=== PATIENT | male | born 1935 | race Caucasian/White ===

== ENCOUNTER 2017-07-10 19:49 | Inpatient (IN) | payer OTHER ==
[~2017-07-10] VITALS: Ht 172.7 cm; Wt 67.0 kg
--- NOTE | ~2017-07-10 | EKG ---
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 07/11/17 0826 D: [id number] Alirio Paez MD, FACC /EPI
--- NOTE | ~2017-07-10 | 2DMMODE ---
[facility] [address] [place] [address] 2 D/M-MODE ECHOCARDIOGRAM Name: HAYES PERSON Room #: 243-P [facility] IN [facility]#: [id number] Admission: 07/10/17 Attend Phys: Kalen Benavidez MD Discharge: Date of : 33 Date of Service: 07/11/17 1016 Report #: [id number] THIS REPORT FOR: //name// APPROVED REPORT Study performed: 07/11/2017 08:09:46 EXAM: Comprehensive 2D, Doppler, and color-flow Echocardiogram Patient Location: ICU Room #: 243 Status: routine BSA: 1.81 HR: 100 bpm BP: 84/53 mmHg Other Information Study Quality: Adequate Indications STEMI, status post stent. Hx: HLD, HTN, PVD, COPD 2D Dimensions RVDd: 34.00 mm LVEF(%): 43.08 (>50%) IVSd: 8.52 (7-11mm) LVOT Diam: 20.12 (18-24mm) LVDd: 45.80 mm PWd: 10.49 (7-11mm) Ascending Ao: 32.29 (22-36mm) LVDs: 36.11 (25-40mm) Aortic Root: 28.27 mm Ordaz's LVEF: 43.08 % Volumes Left Atrial Volume (Systole) Single Plane 4CH: 46.31 mL Single Plane 2CH: 73.36 mL LA ESV Index: 35.00 mL/m2 Aortic Valve AoV Peak Sage.: 1.53 m/s AO Peak Gr.: 9.37 mmHg LVOT Max P.23 mmHg LVOT Max V: 0.90 m/s APOLINAR Vmax: 1.87 cm2 Mitral Valve MV Decel. Time: 91.87 ms MV E Max Sage.: 0.98 m/s IVRT: 50.75 ms [facility] [employer] [place] [address] 2 D/M-MODE ECHOCARDIOGRAM Name: PERSONHAYES Room #: 243-P [facility]#: [id number] Admission: 07/10/17 Attend Phys: Kalen Benavidez MD Discharge: Date of : 33 Date of Service: 07/11/17 1016 Report #: [id number] Pulmonary Valve PV Peak Sage.: 0.84 m/s PV Peak Gr.: 2.85 mmHg Tricuspid Valve TR Peak Sage.: 3.49 m/s RAP Estimate: 10.00 mmHg TR Peak Gr.: 48.70 mmHg PA Pressure: 59.00 mmHg Left Ventricle The left ventricle is normal size. There is normal left ventricular wall thickness. Left ventricular systolic function is decreased. LVEF is 35-40%. This study is not technically sufficient to allow evaluation of the LV diastolic function. Right Ventricle The right ventricle is normal size. Right ventricle is hypokinetic. Atria Left atrium is mildly dilated. The right atrium size is normal. Aortic Valve Aortic valve is calcified. Trace aortic regurgitation. There is no aortic valvular stenosis. Mitral Valve Mitral valve leaflets are thickened, and calcified. Mild mitral annular calcification. Moderate mitral regurgitation. No evidence of mitral valve stenosis. Tricuspid Valve The tricuspid valve is normal in structure. There is mild to moderate tricuspid regurgitation. The right atrial pressure is estimated at 10 mmHg. There is moderate pulmonary hypertension with an estimated PAP of 60mmHg. Pulmonic Valve Pulmonic valve is not well visualized. Great Vessels The aortic root is normal in size. The ascending aorta is normal in size. IVC is dilated and collapses <50% with inspiration. [address] [address] 2 D/M-MODE ECHOCARDIOGRAM Name: HAYES PERSON Room #: 243-P [facility] IN ..#: [id number] Admission: 07/10/17 Attend Phys: Kalen Benavidez MD Discharge: Date of : 33 Date of Service: 07/11/17 1016 Report #: [id number] Pericardium There is no pericardial effusion. <Conclusion> The left ventricle is normal size. Left ventricular systolic function is decreased. LVEF is 35-40%. Left atrium is mildly dilated. Aortic valve is calcified. Trace aortic regurgitation. Mitral valve leaflets are thickened, and calcified. Mild mitral annular calcification. Moderate mitral regurgitation. The tricuspid valve is normal in structure. There is mild to moderate tricuspid regurgitation. The right atrial pressure is estimated at 10 mmHg. There is moderate pulmonary hypertension with an estimated PAP of 60mmHg. Pulmonic valve is not well visualized. <ELECTRONICALLY SIGNED> By: Grayson Burciaga MD 07/11/17 1016 1016 1016 Grayson Burciaga MD /INF
--- NOTE | ~2017-07-10 | HC ---
[facility] [place] [address] CONSULTATION Name: HAYES PERSON Room #: 243-P [facility] IN .R.#: [id number] Admission: 07/10/17 Attend Phys: Kalen Benavidez MD Discharge: Date of : 33 Report #: [id number] THIS REPORT FOR: //name// CC: Sven Benavidez DATE OF SERVICE: 07/11/2017 REASON FOR CONSULTATION: Acute respiratory failure. IMPRESSION: 1. Acute respiratory failure. 2. Possible chronic obstructive pulmonary disease. 3. Cardiogenic shock. 4. Acute myocardial infarction, left main lesion post-stent. 5. Acute kidney injury. 6. Peripheral arterial disease. 7. History of prostate cancer. 8. History of subdural hematoma with yehuda hole. PLAN: We will assist with ventilator management, fluids per renal, as well as pressors. We will follow closely with you. HISTORY OF PRESENT ILLNESS: An 82-year-old with history of hypertension and diabetes, developed chest pain, presented to ____ with elevated troponin, emergency catheterization of left main, which was stented. The patient is unable to give history. PAST MEDICAL HISTORY: Per chart included diabetes, hypertension, peripheral arterial disease, COPD, and anemia. PAST SURGICAL HISTORY: Included yehuda hole, prostate CA with radiation seeds, and iliac stents. HOME MEDICATIONS: Included Levaquin, aspirin, Symbicort, Plavix, glipizide, lisinopril, and Synthroid. SOCIAL HISTORY: Positive tobacco. REVIEW OF SYSTEMS: Unobtainable. FAMILY HISTORY: Per chart included coronary artery disease. PHYSICAL EXAMINATION: VITAL SIGNS: Temperature 97.6, pulse 118, respiratory rate 28, and BP 91/49. [facility] [address] [place] [address] CONSULTATION Name: HAYES PERSON Room #: 243-P [facility] IN [facility].#: [id number] Admission: 07/10/17 Attend Phys: Kalen Benavidez MD Discharge: Date of : 33 Report #: [id number] GENERAL: The patient was seen this a.m. and this evening, currently on ventilator, minute ventilation 13, peak airway pressure 22. LUNGS: Coarse bilaterally. HEART: Regular. ABDOMEN: Bowel sounds present. EXTREMITIES: Bruising noted. Decreased pedal pulses. No edema. LABORATORY DATA: Tonight, pH 7.497, pCO2 31, pO2 135, 70%, rate is 16, tidal volume 500, and PEEP of 5. Hemoglobin down to 7.4. KUB showed fecal material. No small bowel obstruction. Echo showed EF 35% to 40% and moderate pulmonary hypertension at 60. We will follow closely with you. By: 010 Sven Mantilla MD /nt
--- NOTE | ~2017-07-10 | CATHLAB ---
[facility] [address] [place] [address] INVASIVE PROCEDURE REPORT Name: HAYES PERSON Room #: 243-P DIS IN [facility]#: [id number] Admission: 07/10/17 Attend Phys: Kalen Benavidez MD Discharge: 07/12/17 Date of : 33 Date of Service: 07/16/17 1006 Report #: [id number] THIS REPORT FOR: //name// APPROVED REPORT Patient Details Patient Status: In-Patient Room #: The patient is a 82 year-old male Event Personnel Greg Lombardo Dioramist, Olimpia Block RN RN, Camilo Bae RN, Linda Martinez Vansandt, Kristi RTR Monitor, Griselda De León Monitor, Griselda Menendez RTR Monitor Procedures Performed Art Access - R femoral artery* Saturnino Access - R femoral vein Right and Left Heart Cath w/or w/o Coronarie [id number] [facility] [facility] w/wo Plasty Single Left Main [id number] Procedure Narrative The patient was brought emergently to the Cardiac Catheterization Laboratory and was prepped and draped in a sterile manner. The Right Groin^ was infiltrated with 1% Lidocaine subcutaneous anesthesia. A Right Heart Catheterization was performed with a 8 Fr. [place]-Andre catheter and pressure were recorded. Cardiac outputs were obtained by the Darinel method. A PINNACLE 6FR Sheath #[id number] sheath was inserted into the RFA^. Coronary angiography was performed using coronary diagnostic catheters. The right coronary system was accessed and visualized with a JR 4 catheter. The left coronary system was accessed and visualized with a JL 4 catheter. The left ventricle was accessed and visualized with a Pigtail catheter. Left ventricular/Aortic Valve gradient assessed via catheter pullback. Left ventriculogram was performed in ANGULO projection. The patient tolerated the procedure well and there were no complications associated with the procedure. There was no hematoma. Fluoro Time: 22.36 minutes Dose: DAP 97136.70 cGycm2 96456.69 mGy Contrast Type and Amount: Omnipaque 210 ml Hemodynamics The right atrial mean pressure is 25 mmHg. The right ventricular pressure is 72/20 mmHg. The pulmonary artery pressure is 69/37 mmHg with a mean of 50 mmHg. The mean pulmonary capillary wedge pressure [facility] [address] [place] [address] INVASIVE PROCEDURE REPORT Name: HAYES PERSON Room #: 243-P [facility]#: [id number] Admission: 07/10/17 Attend Phys: Kalen Benavidez MD Discharge: 07/12/17 Date of : 33 Date of Service: 07/16/17 1006 Report #: [id number] is 42 mmHg. The aortic pressure is 95/46 mmHg with a mean of 65 mmHg. The left ventricular pressure is 103/17 mmHg with a mean of mmHg. The left ventricular end diastolic pressure is 29 mmHg. PCI Technique Lesion Anticoagulation was achieved with Heparin. Percutaneous coronary intervention was performed on the LM. A LAUNCHER 6FR EBU 3.5 #[id number] Guide Catheter was used to engage the ostium. A Luge Wire .014 x 182CM #[id number] Interventional Guidewire was used to cross the lesion. BALLOON DILATION A Balloon catheter Sprinter OTW 2.0 x 15 #[id number] was inserted and inflated up to daylin for seconds. STENT DEPLOYMENT A drug-eluting stent RESOLUTE OTW 3.0 X 9 #[id number] was inserted and inflated up to daylin for seconds. POST STENT DEPLOYMENT BALLOON DILATION A Balloon catheter TREK NC OTW 3.25 X 12 #[id number] was inserted and inflated up to daylin for seconds. Conclusion #1 successful PTCA stent of a subtotal distal left main in the setting of cardiogenic shock marked improvement in hemodynamic stability post procedure. #2 moderate LAD disease although no high-grade occlusive disease is noted #3 circumflex OM ostium also subtotally occluded was successfully dilated through the left main stent with marked improvement in flow. Nondominant mild distal disease #4 dominant right with moderate diffuse disease relatively small PDA KENNY #5 moderately severe anterior apical hypokinesis of the left ventricle with an EF of 25% #6 successful placement of [place]-Andre catheter left in for monitoring purposes #7 successful emergent intubation performed in the catheterization lab by ER physician Further discussion patient with impending cardiogenic shock requiring pressor support during this procedure and it flow to the myocardium was through this distal left main which was subtotaled. Transient periods of hypotension with balloon inflations. Emergent intubation and pressor support which was able to be predominantly weaned off a [facility] [address] [place] [address] INVASIVE PROCEDURE REPORT Name: HAYES PERSON Room #: 243-P [facility] IN [place]#: [id number] Admission: 07/10/17 Attend Phys: Kalen Benavidez MD Discharge: 07/12/17 Date of : 33 Date of Service: 07/16/17 1006 Report #: [id number] transfer to the ICU. Patient extremely guarded condition I would still deem this prognosis to be extremely guarded. Transfer to ICU with arterial line and [place]-Andre catheter in place. Sedated and intubated. <ELECTRONICALLY SIGNED> By: Greg Lombardo MD, [facility] 07/16/17 1006 1006 100 Greg Lombardo MD, [facility] /INF
--- NOTE | ~2017-07-10 | EKG ---
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 07/11/17 0829 Alirio aPez MD, [facility] /EPI
--- NOTE | ~2017-07-10 | HC ---
[facility] [place] [address] CONSULTATION Name: HAYES PERSON Room #: 243-P ADM IN ..#: [id number] Admission: 07/10/17 Attend Phys: Kalen Benavidez MD Discharge: Date of : 33 Report #: [id number] THIS REPORT FOR: //name// CC: Sven Benavidez HISTORY OF PRESENT ILLNESS: The patient is an 82-year-old male who is apparently transferred here from [facility] via the hospitalist service. I was called about some continued chest pain when he got to the CCU. He does not have documented coronary artery disease. Despite GI cocktail, heparin, Integrilin, morphine, he was still on persistent pain with what appears to be in a subendocardial injury pattern with marked ST depression in the predominantly some anterior lateral leads with a right bundle branch block. Somewhat of a left anterior fascicular block. There were no significant changes on the EKGs from [place] and then the 2 tracings here, but still cannot get relieved this pain, mildly dyspneic and short of breath. Subsequently will be taken emergently to the catheterization lab. He tells that this came on fairly suddenly and really had not much warning. I was not able to have a long discussion with the patient as we proceeding on emergently. I was able to review some of the old records. MEDICATIONS: His home meds appeared to be atorvastatin, Vistaril, levothyroxine, lisinopril 10, glipizide 5, baby aspirin, Plavix 75, Symbicort, hydrocodone and Levaquin. PAST MEDICAL HISTORY: Positive for peripheral vascular disease with stents in his iliac arteries, hypercholesterolemia. No hypertension, no blood pressure medications. Prostate radiation seeds. 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 SOCIAL HISTORY: He is retired. He is . He lives in [place]. He has 2 children. Prior tobacco user. No alcohol. FAMILY HISTORY: Not obtainable. REVIEW OF SYSTEMS: Really not obtainable. ALLERGIES: No known drug allergies. PHYSICAL EXAMINATION: GENERAL: He is somewhat alert. He appears to have dry mucous membranes. He is in some tdfe-ax-misalatv distress. He states pain is 7-8/10. VITAL SIGNS: Blood pressure is marginal 100/60 on a nitro drip and a heparin drip. HEENT: Eyes reveal arcus senilis. Pharynx is dry mucous membranes. NECK: Shows preserved upstrokes. [address] [address] CONSULTATION Name: HAYES PERSON Room #: 243-P [facility] IN [facility]#: [id number] Admission: 07/10/17 Attend Phys: Kalen Benavidez MD Discharge: Date of : 33 Report #: [id number] LUNGS: Prolonged expiratory phase. CARDIOVASCULAR: Distant heart tones, S1, S2. There is a faint systolic ejection murmur. ABDOMEN: Slightly protuberant, nontender. EXTREMITIES: Reveal there is ecchymosis on his right elbow, some ecchymotic areas on his hands. I cannot palpate the distal pulses. Femoral pulses are intact with bruits. NEUROLOGIC: Intact, nonfocal. MUSCULOSKELETAL: Generalized arthritic changes. I did not ambulate him. ASSESSMENT: 1. Pli-UJ-pdkiyrfsv myocardial infarction with elevated troponin of 21 and persistent chest pain. EKG changes consistent with subendocardial injury. 2. Acute systolic failure, suspected. 3. Hypercholesterolemia. 4. Degenerative joint disease. 5. Peripheral vascular disease with history of iliac stents. RECOMMENDATIONS AND PLAN: I have given him Lipitor, heparin, Integrilin boluses and drips, additional aspirin and we will proceed to the catheterization lab immediately for diagnostic cath and intervention as indicated. The patient is certainly in guarded condition here with some marginal blood pressure, persistent pain and significant EKG changes. May represent multivessel disease. We will discuss the above with the family, was currently not present. <ELECTRONICALLY SIGNED> By: Greg Lombardo MD, FACC 07/12/17 1232 0306 0516 Greg Lombardo MD, FACC /nt
--- NOTE | ~2017-07-10 | HC ---
[facility] [place] [address] CONSULTATION Name: HAYES PERSON Room #: 243-P [facility] IN ..#: [id number] Admission: 07/10/17 Attend Phys: Kalen Benavidez MD Discharge: Date of : 33 Report #: [id number] THIS REPORT FOR: //name// CC: Sven Benavidez DATE OF SERVICE: 07/10/2017 REASON FOR CONSULTATION: Cardiogenic shock and renal failure. HISTORY OF PRESENT ILLNESS: This 82-year-old gentleman with COPD, peripheral vascular disease, hypertension and diabetes, was in progressively failing health with increasing shortness of breath, developed chest pain, presented to ____ Hospital and was found to have an elevated troponin, low blood pressure, decreased urine output with an elevated creatinine, was transferred to this hospital. He underwent emergency cardiac catheterization. He had a left main lesion, which was stented. He was seen in the ICU. His blood pressure was low. His lactic acid is high. He is unresponsive on the ventilator. PAST MEDICAL HISTORY: Family is not here and I cannot reach them by phone or other means. According to the records that we have, the patient has diabetes, hypertension, COPD, peripheral arterial disease, has had apparently iliac stents in the past as well. He has been anemic, progressive shortness of breath as mentioned. He apparently had a subdural hematoma at some point with his yehuda hole, has had prostate cancer with radiation seeds as well as hypothyroidism. HOME MEDICATIONS: As listed includes atorvastatin 40 mg daily, Synthroid 0.075 mg daily, lisinopril 10 mg daily, glipizide 5 mg daily, aspirin 81 mg daily, Plavix 75 mg daily, Symbicort inhaler and he had been on some levofloxacin. SOCIAL HISTORY: A heavy smoker for many, many years, but quit 10 or 12 years ago. REVIEW OF SYSTEMS: Cannot be taken. Obviously, he was rather ill and on presentation, he is on the ventilator, unresponsive. FAMILY HISTORY: Positive for coronary artery disease and vascular disease in his brother. PHYSICAL EXAMINATION: GENERAL: This is an ill-appearing, very pale, unresponsive gentleman seen in the ICU. VITAL SIGNS: Blood pressure is 80/60. SKIN: Slightly cool, not cyanotic. SKELETAL: Shows him be well developed, well nourished. He is nonobese. [facility] [address] [place] [address] CONSULTATION Name: HAYES PERSON Room #: 243-P [facility] IN [facility]#: [id number] Admission: 07/10/17 Attend Phys: Kalen Benavidez MD Discharge: Date of : 33 Report #: [id number] HEENT: Pupils are reactive. No scleral icterus. Endotracheal tube in place. NECK: Supple. Neck veins appear to be slightly distended. CHEST: Shows diminished breath sounds with some rhonchi at the bases. HEART: Regular. ABDOMEN: Soft and nontender. Bowel sounds are diminished. EXTREMITIES: Show decreased pulses. No cyanosis. LABORATORY DATA: Sodium 136, potassium 5.3, chloride 124, bicarbonate 12, creatinine 2.9, BUN 64. AST is 362 and ALT 263, albumin 2.7. Troponin-I is 53 and lactic acid 4.95. The hemoglobin is only 7.6, white count 10, platelets are 230. Arterial blood gas: pH of 7.288, pCO2 of 26, pO2 of 236, on 70% FiO2 on the ventilator. ASSESSMENT AND PLAN: 1. Cardiogenic shock. The patient's cardiogenic shock in the setting of acute myocardial infarction and left main lesion status post stenting. May or may not need some pressors. He is anuric with elevated creatinine and potassium and metabolic acidosis. He will require CRRT in an effort to correct the acidosis and the hyperkalemia. At this point, he does not appear to be a candidate for ultrafiltration that will need to be ongoing consideration. We have ____ emotional process of placing a catheter. So far, I have not been able to contact the family. This may turn supervisor to be medical necessity and CRRT orders are in. 2. Acute kidney injury. He is relatively anuric. This may be shutdown for some time. 3. Chronic obstructive pulmonary disease. 4. Peripheral arterial disease. 5. History of prostate cancer with radiation therapy. 6. History of subdural hematoma with yehuda hole. By: 0827 0918 Greg Scott MD /nt
[2017-07-10 21:31] VITALS: BP 102/70
[2017-07-10] MEDS ORDERED: LIPITOR40 MG PO (22:03)
[2017-07-10] MEDS ORDERED: VISTARIL 25 MG25 M1 PO (22:03)
[2017-07-10] MEDS ORDERED: SYNTHROID75 MCG PO (22:04)
[2017-07-10] MEDS ORDERED: LISINOPRIL10 MG PO (22:05)
[2017-07-10] MEDS ORDERED: GLUCOTROL5 MG PO (22:05)
[2017-07-10] MEDS ORDERED: ASPIR 8181 MG PO (22:06)
[2017-07-10] MEDS ORDERED: PLAVIX 75 MG TA75 MG PO (22:07)
[2017-07-10] MEDS ORDERED: SYMBICORT160 MCG/4. INH (22:09)
[2017-07-10] MEDS ORDERED: HYDROCODONE-AP1 EAC6 PO (22:14)
[2017-07-10] MEDS ORDERED: LEVAQUIN 750 M750 MG PO (22:16)
[2017-07-11] VITALS (20 sets, daily range): BP systolic 66–118; BP diastolic 38–67
[2017-07-11 00:42] LABS: CALCIUM 8.9 mg/dL (8.5-10.1); CREATININE 2.4 mg/dL (0.7-1.3); POTASSIUM 4.3 mmol/L (3.5-5.1)
[2017-07-11 00:50] LABS: HEMATOCRIT 26.3 % (42.0-52.0); HEMOGLOBIN 8.8 gm/dL (14.0-18.0); MCH 30.2 pg (26.0-34.0); MCHC 33.4 g/dL (28.0-37.0); MCV 90.3 fL (80.0-100.0); RBC 2.91 mil/uL (4.50-6.00); RDW 14.3 % (10.5-14.5); WBC 12.2 thou/uL (4.0-11.0)
[2017-07-11 01:01] LABS: INR 1.2; PROTIME 11.5 Seconds (9.3-11.4)
[2017-07-11 01:04] LABS: APTT 85.3 Seconds (24.5-32.8)
[2017-07-11 03:00] LABS: % SATURATION 8 % (20-39); IRON 25 ug/dL (65-175); TIBC 301 ug/dL (250-450); UIBC 276 ug/dL
[2017-07-11 03:54] LABS: ABG SAMPLE TYPE ARTERIAL; BE(vivo) -14.9 mmol/L (-2 to +3); HCO3 11.7 mmol/L (22.0-26.0); LACTATE 6.36 mmol/L (0.5-2.0); O2(CT) 12.9 mL/dL (15.0-23.0); O2Hb 98.2 % (92.0-98.0); PCO2 30.1 mmHg (35.0-45.0); PO2 370.2 mmHg (80.0-100.0); STICK SITE LINE; pH 7.208 (7.360-7.450); sO2 99.7 % (92.0-98.0); tCO2 12.6 mmol/L (24.0-30.0)
[2017-07-11 03:55] LABS: TIDAL VOLUME 500 ml
[2017-07-11 05:23] LABS: HEMATOCRIT 22.8 % (42.0-52.0); HEMOGLOBIN 7.6 gm/dL (14.0-18.0); MCHC 33.1 g/dL (28.0-37.0); MCV 90.7 fL (80.0-100.0); RBC 2.52 mil/uL (4.50-6.00); RDW 14.4 % (10.5-14.5)
[2017-07-11 05:40] LABS: ALBUMIN 2.7 g/dL (3.4-5.0); ALKALINE PHOSPHATASE 66 U/L (46-116); ANION GAP 20 mmol/L (7-16); BUN 64 mg/dL (7-18); CHLORIDE 104 mmol/L (98-107); CHOLESTEROL 74 mg/dL (<200); CO2 12 mmol/L (21-32); CREATININE 2.9 mg/dL (0.7-1.3); GLUCOSE 111 mg/dL (74-106); HDL CHOLESTEROL 35 mg/dL (>40); LDL CHOLESTEROL 31 mg/dL (<100); SGOT 362 U/L (15-37); SGPT 263 U/L (30-65); SODIUM 136 mmol/L (136-145); TC:HDL 2.1 Ratio (Not establshd); TOTAL BILIRUBIN 1.6 mg/dL (<0.1-1.0); TOTAL PROTEIN 5.5 g/dL (6.4-8.2); TRIGLYCERIDE 44 mg/dL (<150); VLDL 9 mg/dL (<40)
[2017-07-11 05:45] LABS: ABG SAMPLE TYPE ARTERIAL; BE(vivo) -12.9 mmol/L (-2 to +3); HCO3 12.4 mmol/L (22.0-26.0); O2(CT) 11.9 mL/dL (15.0-23.0); PCO2 26.5 mmHg (35.0-45.0); PO2 236.1 mmHg (80.0-100.0); sO2 99.4 % (92.0-98.0); tCO2 13.2 mmol/L (24.0-30.0)
[2017-07-11 05:46] LABS: LACTATE 4.95 mmol/L (0.5-2.0); STICK SITE ALINE; TIDAL VOLUME 500 ml; pH 7.288 (7.360-7.450)
[2017-07-11 06:05] LABS: POTASSIUM 5.3 mmol/L (3.5-5.1); TROPONIN-I 52.75 ng/mL (<0.04-0.07)
[2017-07-11 12:33] LABS: HEMATOCRIT 23.9 % (42.0-52.0); HEMOGLOBIN 7.8 gm/dL (14.0-18.0)
[2017-07-11 18:05] LABS: HEMOGLOBIN 7.4 gm/dL (14.0-18.0)
[2017-07-11 18:52] LABS: ABG SAMPLE TYPE ARTERIAL; BE(vivo) 0.5 mmol/L (-2 to +3); HCO3 23.5 mmol/L (22.0-26.0); O2(CT) 11.2 mL/dL (15.0-23.0); O2Hb 97.3 % (92.0-98.0); PO2 135.3 mmHg (80.0-100.0); pH 7.497 (7.360-7.450); sO2 98.9 % (92.0-98.0); tCO2 24.4 mmol/L (24.0-30.0)
[2017-07-11 18:53] LABS: LACTATE 5.86 mmol/L (0.5-2.0); STICK SITE LINE
[2017-07-11 18:54] LABS: TIDAL VOLUME 500 ml
[2017-07-12] VITALS (25 sets, daily range): BP systolic 65–149; BP diastolic 24–81
[2017-07-12 00:30] LABS: HEMATOCRIT 21.5 % (42.0-52.0); HEMOGLOBIN 7.1 gm/dL (14.0-18.0); MCH 30.1 pg (26.0-34.0); MCV 91.3 fL (80.0-100.0); PLATELET COUNT 171 thou/uL (150-400); RBC 2.36 mil/uL (4.50-6.00); RDW 14.3 % (10.5-14.5); WBC 10.1 thou/uL (4.0-11.0)
[2017-07-12 00:40] LABS: MANUAL DIFF YES
[2017-07-12 01:07] LABS: GLYCOHEMOGLOBIN (HGB A1C) 5.4 % (4.8-5.6)
[2017-07-12 01:11] LABS: ALBUMIN 2.4 g/dL (3.4-5.0); CALCIUM 7.3 mg/dL (8.5-10.1); MAGNESIUM 2.2 mg/dL (1.8-2.4); PHOSPHORUS 4.7 mg/dL (2.5-4.9); TOTAL BILIRUBIN 2.8 mg/dL (<0.1-1.0); TOTAL PROTEIN 4.5 g/dL (6.4-8.2)
[2017-07-12 01:14] LABS: POTASSIUM 4.2 mmol/L (3.5-5.1)
[2017-07-12 01:25] LABS: ABSOLUTE NEUTROPHILS 8.7 thou/uL (1.4-8.2); NUCLEATED RBCS 2 /100WBC; TOTAL CELL COUNT 100
[2017-07-12 01:26] LABS: POLYCHROMASIA 1+
[2017-07-12 01:27] LABS: LARGE PLATELETS OCCASIONAL
[2017-07-12 04:47] LABS: ABG SAMPLE TYPE ARTERIAL; BE(vivo) -12.1 mmol/L (-2 to +3); HCO3 13.5 mmol/L (22.0-26.0); O2(CT) 10.3 mL/dL (15.0-23.0); O2Hb 96.7 % (92.0-98.0); PCO2 29.5 mmHg (35.0-45.0); PO2 126.2 mmHg (80.0-100.0); sO2 98.2 % (92.0-98.0); tCO2 14.4 mmol/L (24.0-30.0)
[2017-07-12 04:48] LABS: STICK SITE LINE; TIDAL VOLUME 500 ml; pH 7.279 (7.360-7.450)
[2017-07-12 06:38] LABS: MCHC 32.1 g/dL (28.0-37.0); MCV 93.3 fL (80.0-100.0); RBC 2.09 mil/uL (4.50-6.00); RDW 14.5 % (10.5-14.5); WBC 11.2 thou/uL (4.0-11.0)
[2017-07-12 06:42] LABS: HEMATOCRIT 19.5 % (42.0-52.0); HEMOGLOBIN 6.3 gm/dL (14.0-18.0)
[2017-07-12 06:45] LABS: CALCIUM 7.2 mg/dL (8.5-10.1); CREATININE 2.6 mg/dL (0.7-1.3)
[2017-07-12 06:48] LABS: POTASSIUM 5.8 mmol/L (3.5-5.1)
[2017-07-12 06:56] LABS: ALBUMIN 2.1 g/dL (3.4-5.0); PHOSPHORUS 9.6 mg/dL (2.5-4.9)
[2017-07-12 11:00] LABS: HEMATOCRIT 24.6 % (42.0-52.0); HEMOGLOBIN 8.2 gm/dL (14.0-18.0)
== END 2017-07-12 20:33 | DRG 246 ==
LOC: 2N 19:49 → ICU 21:19 → 2N 21:19 → ICU 07-11 02:29
PROVIDERS: Hospitalist; Internal Medicine Cardiovascular Disease; Internal Medicine Nephrology; Internal Medicine Pulmonary Disease; Nurse Practitioner Acute Care
PROC: B548ZZA Ultrasonography of Superior Vena Cava, Guidance (ICD-10-PCS; principal; 2017-07-11)
PROC: 5A1D00Z (ICD-10-PCS; principal; 2017-07-11)
PROC: 5A1945Z Respiratory Ventilation, 24-96 Consecutive Hours (ICD-10-PCS; principal; 2017-07-11)
PROC: 02HV33Z Insertion of Infusion Device into Superior Vena Cava, Percutaneous Approach (ICD-10-PCS; principal; 2017-07-11)
PROC: 027034Z Dilation of Coronary Artery, One Artery with Drug-eluting Intraluminal Device, Percutaneous Approach (ICD-10-PCS; 2017-07-11)
PROC: 4A023N8 Measurement of Cardiac Sampling and Pressure, Bilateral, Percutaneous Approach (ICD-10-PCS; 2017-07-11)
PROC: B2111ZZ Fluoroscopy of Multiple Coronary Arteries using Low Osmolar Contrast (ICD-10-PCS; 2017-07-11)
PROC: 30233N1 Transfusion of Nonautologous Red Blood Cells into Peripheral Vein, Percutaneous Approach (ICD-10-PCS; 2017-07-12)
DX: I21.4 Non-ST elevation (NSTEMI) myocardial infarction (principal); I50.41 Acute combined systolic (congestive) and diastolic (congestive) heart failure; K72.00 Acute and subacute hepatic failure without coma; J96.21 Acute and chronic respiratory failure with hypoxia; N17.9 Acute kidney failure, unspecified; I13.0 Hypertensive heart and chronic kidney disease with heart failure and stage 1 through stage 4 chronic kidney disease, or unspecified chronic kidney disease; K92.2 Gastrointestinal hemorrhage, unspecified; E78.00 Pure hypercholesterolemia, unspecified; M19.90 Unspecified osteoarthritis, unspecified site; E11.51 Type 2 diabetes mellitus with diabetic peripheral angiopathy without gangrene; J44.9 Chronic obstructive pulmonary disease, unspecified; E03.9 Hypothyroidism, unspecified; R57.0 Cardiogenic shock; E78.5 Hyperlipidemia, unspecified; D64.9 Anemia, unspecified; R74.0 Nonspecific elevation of levels of transaminase and lactic acid dehydrogenase [LDH]; N18.3 Chronic kidney disease, stage 3 (moderate); E87.5 Hyperkalemia; K59.00 Constipation, unspecified; E11.649 Type 2 diabetes mellitus with hypoglycemia without coma; Z66 Do not resuscitate; Z95.5 Presence of coronary angioplasty implant and graft; Z87.891 Personal history of nicotine dependence; Z82.49 Family history of ischemic heart disease and other diseases of the circulatory system; Z85.46 Personal history of malignant neoplasm of prostate; Z92.3 Personal history of irradiation; Z82.3 Family history of stroke; Z79.899 Other long term (current) drug therapy
CPT/HCPCS: 10078; 10081; 32110